=== PATIENT | female | born 1990 | race Caucasian/White ===

== ENCOUNTER 2016-10-14 11:57 | Emergency (ER) | payer OTHER ==
[2016-10-14 12:05] VITALS: BP 113/66; PULSE 76; RESP 17; TEMP 97.9; O2SAT 96
--- NOTE | 2016-10-14 12:21 | EDPHY ---
H & P Stated Complaint: nipped by dog in apt elevator/?broken skin/in [place] Time Seen by Provider: 10/14/16 12:10 HPI/ROS: CHIEF COMPLAINT: Possible dog bite left hand HISTORY OF PRESENT ILLNESS: 26-year-old immunocompetent female with up-to-date tetanus states that yesterday her neighbors small dog jumped up on her in the elevator and may have sustained a dog scratched, may have sustained a bite to the dorsum of her left hand. She states that it was initially erythematous but now has completely resolved. She is concerned about rabies. This is a domesticated dog that lives next door. She has not spoke with her neighbor yet doubt whether the rabies vaccine is up-to-date. Patient has no complaints of underlying pain. PHYSICAL EXAM (Prior to examination, patient consented to physical exam, hands were washed and my usual and customary physical exam procedures followed) 1) GENERAL: Well-developed, well-nourished, alert and oriented. Appears to be in no acute distress. 2) HEAD: Normocephalic 3) HEENT: sclera anicteric 4) LUNGS: Breathing comfortably. 5) SKIN: on the patient's left hand there is no discoloration, no tenderness, no break in skin, no signs of infection. No lymphangitic streaking. No epitrochlear adenopathy 6) MUSCULOSKELETAL: Left hand has no underlying pain, no deformity. - Personal History LMP (Females 10-55): 15-21 Days Ago Current Tetanus/Diphtheria Vaccine: Unsure Current Tetanus Diphtheria and Acellular Pertussis (TDAP): Unsure - Medical/Surgical History Hx Asthma: No Hx Chronic Respiratory Disease: No Hx Diabetes: No Hx Cardiac Disease: No Hx Renal Disease: No Hx Cirrhosis: No Hx Alcoholism: No Hx HIV/AIDS: No Hx Splenectomy or Spleen Trauma: No Other PMH: DENIES - Social History Smoking Status: Never smoked Constitutional: Initial Vital Signs Temperature (C) 36.6 C 10/14/16 12:01 Heart Rate 76 10/14/16 12:01 Respiratory Rate 17 10/14/16 12:01 Blood Pressure 113/66 10/14/16 12:01 O2 Sat (%) 96 10/14/16 12:01 O2 Delivery Mode Room Air Allergies/Adverse Reactions: No Known Allergies Allergy (Verified 10/14/16 12:01) Home Medications: Medication Instructions Recorded NK [No Known Home Meds] 10/26/15 Medical Decision Making ED Course/Re-evaluation: Patient is unsure whether this patient's dog actually bit her or not. On exam I see absolutely no signs of bite or scratch, the skin is completely intact with no signs of infection. I do not think that antibiotics are currently indicated as it is not completely me that the patient was ever bitten by a dog. Patient was concerned about rabies vaccination we had a lengthy discussion about this. We discussed the risk of rabies from a domesticated dog . At this time I do not think that the benefits of post exposure prophylaxis outweigh the risks as is not clear that the patient was ever been and there is no break in the skin. However, I recommended she speak with her neighbor today to ensure that they dog has up-to-date rabies vaccination. If the dog does not she needs to return to the ER for re-evaluation. Departure - Departure Disposition: Home, Routine, Self-Care Clinical Impression: Dog scratch Condition: Good Instructions: Rabies Vaccine (ED) Additional Instructions: Talk to your neighbor today and ask whether the dog's rabies vaccine is up to to date Referrals: COURTNEY Peters,. [Clinic] - 10/17/16
== END 2016-10-14 12:25 | disposition home or self-care (01) ==
DX: S60.512A Abrasion of left hand, initial encounter (principal); W54.8XXA Other contact with dog, initial encounter; Y92.89 Other specified places as the place of occurrence of the external cause; Y99.8 Other external cause status